=== PATIENT | female | born 1960 | race Hispanic/Latino ===

== ENCOUNTER 2020-07-29 08:26 | Outpatient (CLI) | payer BC | END 2020-07-29 08:27 | disposition home or self-care (01) | LOC: TBSIIMAG 08:26 | PROVIDERS: ATTEND Specialist | DX: M25.561 Pain in right knee (principal); S82.011A Displaced osteochondral fracture of right patella, initial encounter for closed fracture; S83.429A Sprain of lateral collateral ligament of unspecified knee, initial encounter ==

== ENCOUNTER 2023-08-20 13:05 | Outpatient (CLI) | payer BC | END 2023-08-20 13:06 | disposition home or self-care (01) | LOC: BICMRI 13:05 | PROVIDERS: ATTEND Orthopaedic Surgery | DX: M75.112 Incomplete rotator cuff tear or rupture of left shoulder, not specified as traumatic (principal); M75.52 Bursitis of left shoulder; M19.012 Primary osteoarthritis, left shoulder ==